=== PATIENT | female | born 1970 | race Caucasian/White ===

== ENCOUNTER 2021-01-25 10:40 | Emergency (ER) | payer BC, OTHER ==
[~2021-01-25] VITALS: Ht 167.6 cm; Wt 128.8 kg
[2021-01-25 10:54] VITALS: BP 173/90
[2021-01-25] MEDS ORDERED: METHOCARBAMOL 500 MG TAB PO ONE (11:15)
== END 2021-01-25 12:39 | disposition home or self-care (01) ==
LOC: ER 10:40
DX: M48.02 Spinal stenosis, cervical region (principal); M62.838 Other muscle spasm
CPT/HCPCS: 72125; 93005

== ENCOUNTER 2023-06-12 08:27 | Inpatient (IN) | payer BC, OTHER ==
[~2023-06-12] VITALS: Ht 167.6 cm; Wt 113.0 kg
[2023-06-12 09:19] LABS: Basophils # (auto) 0 10 ^3/uL (0-0.2); Basophils % (auto) 0.5 % (0.0-2.0); Eosinophils # (auto) 0.3 10 ^3/uL (0-0.8); Eosinophils % (auto) 3.5 % (0.0-7.0); Hematocrit 41.6 % (36.0-46.0); Lymphocytes # (auto) 2.9 10 ^3/uL (0.4-5.4); Mean Corpuscular Hgb Conc. 33.7 g/dL (32.0-36.0); Monocytes # (auto) 0.5 10 ^3/uL (0-1.3); Neutrophils # (auto) 4.9 10 ^3/uL (1.6-8.6); Nucleated Red Blood Cells % 0.2 %; Red Blood Cells 5.01 10^6/uL (4.0-5.20); Red Cell Distribution Width 13.9 % (11.8-14.3); White Blood Cell 8.7 10^3/uL (4.4-10.8)
[2023-06-12 09:24] VITALS: PULSE 69; RESP 13; O2SAT 98
[2023-06-12 09:37] LABS: Alanine Aminotransferase 13 U/L (7-40); Albumin 4.2 g/dL (3.2-4.8); Alkaline Phosphatase 73 U/L (46-116); Anion Gap 5 (5-15); Aspartate Aminotransferase 17 U/L (13-40); BUN/Creatinine Ratio 8.6 (10.0-20.0); Bilirubin, Total 0.5 mg/dL (0.2-1.0); Blood Urea Nitrogen 6 mg/dL (9-23); Calcium 9.2 mg/dL (8.5-10.1); Carbon Dioxide 31 mmol/L (20-30); Chloride 103 mmol/L (98-107); Glucose 108 mg/dL (74-106); Potassium 3.6 mmol/L (3.5-5.1); Sodium 139 mmol/L (136-145); Total Protein 6.8 g/dL (5.7-8.2)
[2023-06-12 10:36] LABS: Urine Bacteria NONE SEEN /hpf (None Seen); Urine Blood Negative /uL (Negative); Urine Clarity Clear (Clear); Urine Protein, UAD Negative (Negative); Urine Specific Gravity 1.006 (1.001-1.035); Urine Urobilinogen Normal (Negative); Urine WBC 1 /hpf (0 - 5)
[2023-06-12 10:48] LABS: Urine Color STRAW (Yellow)
[2023-06-12] MEDS ORDERED: ONDANSETRON HCL 4 MG/2 ML VIAL IV PRN (17:00)
[2023-06-12] MEDS ORDERED: NITROGLYCERIN 0.4 MG SL TAB SL PRN (17:00)
[2023-06-12] MEDS ORDERED: MORPHINE SULFATE 4 MG/ML SYR/VIAL IV PRN (17:00)
[2023-06-12] MEDS ORDERED: MORPHINE SULFATE INJ 2 MG/ml SYRG IV PRN ×2 (17:00)
[2023-06-12 20:08] VITALS: PULSE 64; RESP 12; O2SAT 98
[2023-06-13] VITALS (10 sets, daily range): BP systolic 126–146; BP diastolic 72–90; PULSE 53–73; RESP 16–22; TEMP 97.5–98.5; O2SAT 94–100
[2023-06-13] MEDS ORDERED: PANT40T PO (01:12)
[2023-06-13] MEDS ORDERED: TIRZ10IN SC (01:12)
[2023-06-13] MEDS ORDERED: ROSU5TAB5 PO (01:12)
[2023-06-13] MEDS ORDERED: CHOL20007 OR (01:12)
[2023-06-13] MEDS ORDERED: HYDR25TA4 PO (01:12)
[2023-06-13] MEDS ORDERED: ADENOSINE 90 MG in GIVE UN-DILUTED 0 ML IV STA (08:10)
[2023-06-13] MEDS: ASPirin-EC 81 mg tab PO SCH (10:51)
[2023-06-13] MEDS: FAMOTIDINE 20 MG TAB PO SCH (10:52)
[2023-06-13] MEDS: ENOXAPARIN SOD 40 MG/0.4 ML SYRINGE SC SCH (10:57)
[2023-06-14 05:00] VITALS: BP 130/71; PULSE 56; RESP 18; TEMP 97.8; O2SAT 97
[2023-06-14 07:30] VITALS: O2SAT 96
[2023-06-14 08:30] VITALS: BP 150/81; PULSE 59; RESP 18; TEMP 97.6; O2SAT 96
[2023-06-14] MEDS: FAMOTIDINE 20 MG TAB PO SCH (09:54)
[2023-06-14] MEDS: ASPirin-EC 81 mg tab PO SCH (09:54)
[2023-06-14] MEDS: ENOXAPARIN SOD 40 MG/0.4 ML SYRINGE SC SCH (09:54)
[2023-06-14 11:59] VITALS: BP 143/89; TEMP 36.4
[2023-06-15 09:07] LABS: Hepatitis B Surface Antigen Negative (Negative)
[2023-06-15 09:28] LABS: Hepatitis C Antibody Negative (Negative)
== END 2023-06-14 12:40 | disposition home or self-care (01) | DRG 312 ==
LOC: ER 08:27 → EDBD 08:27 → TELE 16:56 → TELE-CENTR 22:00
PROVIDERS: ADMIT Hospitalist; ATTEND Hospitalist
DX: R55 Syncope and collapse (principal); Z68.41 Body mass index [BMI] 40.0-44.9, adult; I45.10 Unspecified right bundle-branch block; E66.9 Obesity, unspecified; I10 Essential (primary) hypertension; E78.5 Hyperlipidemia, unspecified
CPT/HCPCS: 36415; 70450; 70551; 71045; 71275; 78452; 80053; 81001; 83036; 84484; 85025; 86803; 87340; 93005; 93017; 93306; 96365; 96372; G0378; J0153

== ENCOUNTER 2023-07-31 07:54 | Inpatient (IN) | payer OTHER ==
[2023-07-28 15:57] LABS: Basophils # (auto) 0.1 10 ^3/uL (0-0.2); Eosinophils # (auto) 0.2 10 ^3/uL (0-0.8); Hematocrit 43.7 % (36.0-46.0); Hemoglobin 14.3 g/dL (12.2-16.2); Lymphocytes # (auto) 3.7 10 ^3/uL (0.4-5.4); Lymphocytes % (auto) 29.9 % (10.0-50.0); Mean Corpuscular Hemoglobin 27.2 pg (28.0-32.0); Mean Corpuscular Hgb Conc. 32.8 g/dL (32.0-36.0); Monocytes # (auto) 0.8 10 ^3/uL (0-1.3); Monocytes % (auto) 6.3 % (0.0-12.0); Neutrophils # (auto) 7.4 10 ^3/uL (1.6-8.6); Neutrophils % (auto) 60.8 % (37.0-80.0); Nucleated Red Blood Cells % 0.1 %; Red Blood Cells 5.27 10^6/uL (4.0-5.20); White Blood Cell 12.2 10^3/uL (4.4-10.8)
[2023-07-28 16:26] LABS: INR 1.02 (0.9-1.15); Partial Thromboplastin Time 30.2 SEC (24.5-34.5); Prothrombin Time 10.7 sec (9.3-11.8)
[2023-07-28 16:31] LABS: Alanine Aminotransferase 15 U/L (7-40); Albumin 4.7 g/dL (3.2-4.8); Alkaline Phosphatase 84 U/L (46-116); Anion Gap 5 (5-15); Aspartate Aminotransferase 13 U/L (13-40); BUN/Creatinine Ratio 11.8 (10.0-20.0); Bilirubin, Total 0.3 mg/dL (0.2-1.0); Blood Urea Nitrogen 10 mg/dL (9-23); Calcium 9.3 mg/dL (8.5-10.1); Carbon Dioxide 31 mmol/L (20-30); Chloride 103 mmol/L (98-107); Cholesterol 160 mg/dL (< 200); Glucose 95 mg/dL (74-106); HDL Cholesterol 54 mg/dL (40-59); LDL Cholesterol 84 mg/dL (< 100); Potassium 4.1 mmol/L (3.5-5.1); Sodium 139 mmol/L (136-145); Total Protein 7.3 g/dL (5.7-8.2); Triglycerides 179 mg/dL (< 150)
[2023-07-29 13:06] LABS: Kappa Lite Chain Free Serum 16.3 mg/L (3.3-19.4)
[~2023-07-31] VITALS: Ht 167.6 cm; Wt 119.6 kg
[2023-07-31] VITALS (11 sets, daily range): BP systolic 132–170; BP diastolic 76–90; PULSE 60–73; RESP 14–20; TEMP 97.8–98; O2SAT 95–97
[~2023-07-31 07:54] MED LIST: CHOL20007 OR; HYDR25TA4 PO; PANT40T PO; ROSU5TAB5 PO; TIRZ10IN SC
[2023-07-31] MEDS ORDERED: VANCOMYCIN 1GM/250ML 250 ML IV ONE (08:15)
[2023-07-31] MEDS ORDERED: VANCOMYCIN HCL 1000 MG VL ONE (10:19)
[2023-07-31] MEDS ORDERED: MIDAZOLAM HCL 2MG/2ML 2ml VIAL (1mg/ml) ONE ×2 (10:19→10:51)
[2023-07-31] MEDS ORDERED: fentaNYL CITRATE 100 MCG/2 ML VL ONE ×2 (10:19→10:51)
[2023-07-31] MEDS ORDERED: LIDOCAINE 2%HCL (LOCAL ANESTH.) INJ 20ML MDV ONE (10:20)
[2023-07-31] MEDS ORDERED: IODIXANOL 320MG/ML 100ML BTL IV ONE (10:20)
[2023-07-31 11:06] LABS: Albumin 3.6 g/dL (2.9-4.4); Alpha-1-Globulin 0.3 g/dL (0.0-0.4); Globulin Total 3.2 g/dL (2.2-3.9); Protein Total Serum 6.8 g/dL (6.0-8.5)
[2023-07-31] MEDS ORDERED: NITROGLYCERIN 0.4 MG SL TAB SL PRN (12:15)
[2023-07-31] MEDS ORDERED: MORPHINE SULFATE INJ 2 MG/ml SYRG IV PRN (12:15)
[2023-07-31] MEDS: HYDROcodone-ACET 5/325MG TAB PO PRN ×2 (15:16→20:07)
[2023-08-01 05:00] VITALS: BP 148/93; PULSE 72; RESP 19; TEMP 98.1; O2SAT 99
[2023-08-01] MEDS: ACETAMINOPHEN 325 MG TAB PO PRN ×2 (06:41→12:35)
[2023-08-01 08:00] VITALS: BP 138/88; PULSE 64; PULSE 79; RESP 20; TEMP 98.3; O2SAT 96
[2023-08-01] MEDS ORDERED: HYDR-4902 PO (11:58)
[2023-08-01] MEDS ORDERED: DOXY-286 PO (11:58)
[2023-08-01 12:00] VITALS: BP 146/95; PULSE 71; RESP 20; TEMP 98.4; O2SAT 94
[2023-08-01] MEDS ORDERED: NALO4SPR2 (12:00)
[2023-08-02 06:06] LABS: Albumin Urine Note: % (.); Protein Total Urine <4.0 mg/dL (Not Estab.)
== END 2023-08-01 15:00 | disposition home or self-care (01) | DRG 243 ==
LOC: CATH 07:54 → TELE 12:12 → TELE-EAST 14:21
PROVIDERS: ADMIT Internal Medicine; ATTEND Internal Medicine
PROC: 0JH606Z Insertion of Pacemaker, Dual Chamber into Chest Subcutaneous Tissue and Fascia, Open Approach (ICD-10-PCS; principal; 2023-07-31)
PROC: 02H63JZ Insertion of Pacemaker Lead into Right Atrium, Percutaneous Approach (ICD-10-PCS; 2023-07-31)
PROC: 02HK3JZ Insertion of Pacemaker Lead into Right Ventricle, Percutaneous Approach (ICD-10-PCS; 2023-07-31)
DX: I44.2 Atrioventricular block, complete (principal); Z68.41 Body mass index [BMI] 40.0-44.9, adult; E11.9 Type 2 diabetes mellitus without complications; E66.01 Morbid (severe) obesity due to excess calories; E78.5 Hyperlipidemia, unspecified; I10 Essential (primary) hypertension; I49.5 Sick sinus syndrome; R55 Syncope and collapse; G56.00 Carpal tunnel syndrome, unspecified upper limb; Z88.0 Allergy status to penicillin; Z98.1 Arthrodesis status
CPT/HCPCS: 36415; 71045; 80053; 80061; 83883; 84155; 84156; 84165; 84166; 85025; 85610; 85730; 93005; 99152; 99153; G0378; J2250; Q9967

== ENCOUNTER 2023-10-02 13:45 | Emergency (ER) | payer OTHER ==
[~2023-10-02] VITALS: Ht 165.1 cm; Wt 113.1 kg
[~2023-10-02 13:45] MED LIST changes: +DOXY-286 PO; +HYDR-4902 PO; +NALO4SPR2
[2023-10-02 14:55] VITALS: BP 160/99; PULSE 79; RESP 20; TEMP 98; O2SAT 100
== END 2023-10-02 16:12 | disposition left against medical advice (07) ==
LOC: ER 13:45
DX: R05.9 Cough, unspecified (principal); R07.89 Other chest pain; Z53.21 Procedure and treatment not carried out due to patient leaving prior to being seen by health care provider

== ENCOUNTER 2024-01-01 07:49 | Emergency (ER) | payer OTHER ==
[~2024-01-01] VITALS: Ht 167.6 cm; Wt 109.9 kg
[2024-01-01 08:45] VITALS: BP 141/86; PULSE 85; RESP 16; TEMP 98.8; O2SAT 98
[2024-01-01] MEDS: LIDOCAINE 1% HCL (LOCAL ANESTH.) INJ 20ML MDV ID ONE (10:00)
[2024-01-01] MEDS ORDERED: BACI-14 EX (10:12)
[2024-01-01] MEDS ORDERED: BACDST PO (10:12)
[2024-01-01] MEDS ORDERED: TRAM50TA2 PO (10:12)
== END 2024-01-01 10:54 | disposition home or self-care (01) ==
LOC: ER 07:49
DX: N76.4 Abscess of vulva (principal); I10 Essential (primary) hypertension; E78.5 Hyperlipidemia, unspecified; Z79.2 Long term (current) use of antibiotics; Z79.899 Other long term (current) drug therapy
CPT/HCPCS: 56405; 99284; J2001